=== PATIENT | male | born 1965 | race Caucasian/White ===

== ENCOUNTER 2023-11-22 15:54 | Emergency (ER) | payer BC, SELFPAY ==
[2023-11-22 15:54] VITALS: BMI 22.5
[2023-11-22 15:59] VITALS: BP 160/91
[2023-11-22 16:36] LABS: % Basophils 0.8 % (0-2); % Eosinophils 5.4 % (0-6); % Immature Granulocytes 2.8 % (0-0.5); % Lymphocytes 24.3 % (20.5-51.1); % Monocytes 11.4 % (1.7-9.3); % Neutrophils 55.3 % (42.2-75.2); Absolute Eosinophils 0.3 10^3/uL (0-0.7); Absolute Immature Granulocytes 0.1 10^3/uL (0-0.05); Absolute Lymphocytes 1.2 10^3/uL (1.2-3.4); Absolute Monocytes 0.6 10^3/uL (0.1-0.6); Absolute Neutrophils 2.8 10^3/uL (1.4-6.5); Hematocrit 34.9 % (39.0-52.0); Hemoglobin 12.1 g/dL (13.0-18.0); Mean Corp Hgb Conc. 34.7 g/dL (33.0-37.0); Mean Corpuscular Hgb 30.6 pg (27.0-31.0); Mean Corpuscular Volume 88.4 fL (80.0-94.0); Nucleated Red Blood Cells % 0 % (-); Platelet Count 342 10^3/uL (130-400); Red Blood Cell Count 3.95 10^6/uL (4.70-6.10); Red Cell Dist. Width 12.1 % (11.5-14.5)
[2023-11-22 16:43] LABS: ALT (SGPT) 46 U/L (0-50); AST (SGOT) 37 U/L (17-59); Albumin 3.9 g/dl (3.5-5.0); Alkaline Phosphatase 104 U/L (38-126); Blood Urea Nitrogen 14 mg/dl (9-20); Calcium 9.1 mg/dl (8.4-10.2); Carbon Dioxide 26 mmol/L (22-30); Chloride 107 mmol/L (98-107); Glucose 80 mg/dl (70-99); Sodium 138 mmol/L (135-145); Total Bilirubin 0.5 mg/dl (0.2-1.3); Total Protein 6.9 g/dl (6.3-8.2); eGFR > 60.00
--- NOTE | 2023-11-22 18:01 | ED.GENMED ---
History of Present Illness
General
Chief Complaint: Breathing Problem
Source: patient
Exam Limitations: none
Time Seen by Provider: 11/22/23 17:36
Nursing documentation reviewed up to this point in time: agreed with
Travel History
Have you had any contact with someone who has COVID-19?: No
Do you have any symptoms of coronavirus? Fever > 100 degrees, chills, cough, shortness of breath, sore throat, loss of taste or smell, muscle aches, or headache?: No
History of Present Illness
History of Present Illness:
Patient to ED with complaint of sudden onset SOB. States he was participating in mass this AM and felt chest tightness. States tightness resolves with rest. Returned again when he ambulated to car. States he noticed it when walking into ED.
Denies fever/chills, cp/pressure. States he feels winded. No leg pain or swelling. No cough. Symptms started this AM. S/P mitral valve replacement 11/02. Was seen this past week for right groin abscess, placed on Keflex. Reports this is
impmroving.
Past History
Past History
ED Past Medical History: Psychiatric (anxiety)
ED Past Surgical History: Cardiac (Mitral valve replacement)
Social History
Tobacco: Non-smoker
Alcohol: None
Drug: None
Review of Systems
Review of Systems
Allergies reviewed?: Yes
All Other Systems: ROS reviewed and negative except as documented in HPI and ROS
Constitutional: Reports no symptoms
EENT: Reports no symptoms
Respiratory: Reports other (SOB )
Cardiac: Reports no symptoms
ABD/GI: Reports no symptoms
: Reports no symptoms
Musculoskeletal: Reports no symptoms
Skin: Reports other (Right groin resoving abscess)
Neurological: Reports no symptoms
Psychiatric: Reports no symptoms
Phy Exam
General Physical Exam
General Presentation: well appearing and no apparent distress
General age: appears stated age
General Skin: warm and dry
General Habitus: normal
Cardiovascular Exam
Cardiovascular Exam: regular rate/rhythm and no edema
Pulmonary Exam
Pulmonary Exam: lungs clear, no respiratory distress, chest non tender, no crackles, no stridor, no wheezing and other (Pulse ox 99% RA, 99% with ambulation)
Gastrointestinal Exam
Gastrointestinal Exam: normal bowel sounds, non tender and soft
Musculoskeletal Exam
Musculoskeletal Exam: full ROM and neuro vasc intact
Skin Exam
Skin Exam: normal color, warm/dry, no rash and other (RIght groin with resolving abscess. Dressing intact with minimal serosanguinous drainage)
Psychiatric Exam
Psychiatric Exam: normal mood/affect
Scores
Heart Failure Risk
Heart Failure Risk Score: Not Applicable
Course
Orders/Labs/Results
Orders:
Orders
11/22/23 16:07
EKG [Electrocardiogram (*1)] Urgent
Reason for Study: Shortness of Breath
11/22/23 16:08
EKG- Treatment ONCE
11/22/23 16:15
CMP [Comprehensive Metabolic Panel] Urgent
Complete Blood Count/With Diff Urgent
11/22/23 18:31
CR Chest - 2 Views Urgent
Comment:
Reason For Exam: SOB
Abnormal Lab Results
11/22/23
16:15
RBC 3.95 L 10^6/uL
(4.70-6.10)
Hgb 12.1 L g/dL
(13.0-18.0)
Hct 34.9 L %
(39.0-52.0)
Abs Immat Gran (auto) 0.1 H 10^3/uL
(0-0.05)
Immature Gran % 2.8 H %
(0-0.5)
Monocytes % 11.4 H %
(1.7-9.3)
11/22/23 16:15
11/22/23 16:15
Vital Signs
Initial and Last Documented VS:
Initial Vital Signs
Temp Pulse Resp BP Pulse Ox
98.5 F 82 18 160/91 98
11/22/23 15:59 11/22/23 15:59 11/22/23 15:59 11/22/23 15:59 11/22/23 15:59
Last Documented Vital Signs
Temp Pulse Resp BP Pulse Ox
98.5 F 82 18 160/91 98
11/22/23 15:59 11/22/23 15:59 11/22/23 15:59 11/22/23 15:59 11/22/23 15:59
*Radiology
Radiology exam reviewed: radiology read reviewed
*Pulse Oximetry
Patient hypoxic: no
*Critical Care Note
Total Time (30-74mins, 75-104mins- exclusive of procedures): Not Applicable
Update Note
Update Note:
Patient seen in dept by CT surgery MANAN. MANAN spoke with Dr. Razo. No further testing needed tonight. Okay to discharge. He will follow up with patient in office on as scheduled.
ED Attending Note
-
Portions of this chart may have been created with voice recognition software.� Occasional wrong word or��sound alike� substitutions may have occurred due to the inherent limitations of voice recognition software.
Discharge Plan
Departure
Patient Disposition: Home (Routine Discharge)
Date of Disposition: 11/22/23
Time of Disposition: 19:43
Patient with high blood pressure during this ER visit?: No
Condition: Good
Covid-19: Not Applicable
Discharge Problem:
SOB (shortness of breath)
Instructions: Shortness of Breath (Dyspnea) (DC)
Prescriptions:
No Action
desvenlafaxine succinate [Pristiq] 50 mg Tablet Extended Release 24 Hr
50 mg PO DAILY
cyclobenzaprine 10 mg Tablet
5 mg PO HS PRN (Reason: muscle spasm) Qty: 20 0RF
acetaminophen 325 mg Tablet
650 mg PO Q4HPRN PRN (Reason: mild pain,headache,temp >101F ) Qty: 0 0RF
aspirin [Children's Aspirin] 81 mg Tablet,Chewable
81 mg PO DAILY Qty: 0 0RF
colchicine 0.6 mg Tablet
0.3 mg PO DAILY Qty: 30 0RF
oxycodone 5 mg Tablet
5 mg PO Q6HPRN PRN (Reason: severe pain) Qty: 20 0RF
Activity Restrictions/Additional Instructions:
Follow up with Dr. Razo on as scheduled. Return to the emergency department immediately for return of your symptoms or any further concerns.
Interventions
Interventions:
*Risk Screen - Suicide Last Done: 11/22/23 15:59
*General Assessment Last Done: 11/22/23 17:53
*Neglect/Abuse Screening Last Done: 11/22/23 15:59
ED- Fall Risk Assessment Last Done: 11/22/23 17:53
*ED COVID-19 Vaccine History Last Done: 11/22/23 15:59
*Nursing Disposition Last Done: 11/22/23 19:56
ED- Cardiac Assessment Last Done: 11/22/23 17:53
ED- Pulmonary Assessment Last Done: 11/22/23 17:53
ED-Skin Assessment Last Done: 11/22/23 17:53
Discharge Date and Time
Discharge Date/Time: 11/22/23 19:56
== END 2023-11-22 19:56 | disposition home or self-care (01) ==
LOC: EMR 15:54
PROVIDERS: Emergency Medicine; EMERGENCY PHYSICIAN Nurse Practitioner; FAMILY PHYSICIAN Family Medicine
DX: R06.02 Shortness of breath (principal)
CPT/HCPCS: 99285; 71046; 80053; 85025; 93005

== ENCOUNTER 2023-11-27 06:43 | Day surgery (SDC) | payer BC, SELFPAY ==
--- NOTE | 2023-11-26 15:06 | PTCARENOTE ---
was notified of abnormal ECG from 11/22/23; no actions requested.
[2023-11-27] VITALS (9 sets, daily range): BP systolic 109–137; BP diastolic 69–84; BMI 25.6
--- NOTE | 2023-11-27 06:40 | W.CVOR.SURPR ---
CVOR Surgeon Immed Pre Op
-
I have examined this patient prior to performance of the scheduled procedure.
The patient's condition is unchanged from the time of the dictated/written History and
Physical and the patient is able to undergo the scheduled procedure.
R groin incision and drainage
Preop diagnosis: right groin seroma vs infection
No changes to health or medications in the interim
[2023-11-27] MEDS: TYLENOL 1000 MG PO (07:13)
[2023-11-27] MEDS: NORMOSOL-R 1000 IV (07:39)
--- NOTE | 2023-11-27 08:53 | W.PN.CT.SURG ---
CT Surgery Operative Note
-
Operative Report
Pre-op Diagnosis: Right Groin Abscess From Prior Cut Down
Post-op Diagnosis: Same
Procedure: Incision and drainage of the right groin with specimen sent for culture
Date of Surgery: 11/27/23
Primary Surgeon: Fabien Razo MD, MS
Assisting Surgeons: Graciela Mims PA-C
Scrub and Circulating RN: Rocky Garcia RN, Diane Mcconnell RN
Sedations: General Endotracheal
Specimen: groin fluid, abscess/debris
Cultures: Blood cultures obtained prior to surgery, and groin fluid/abscess sent
Complications / Blood Loss: 10cc
Findings: The patient was prepped in the usual fashion limited to the right groin. A preoperative time out was performed with all members of the OR team. The side of surgery was verified as the right side. Ultrasound was used to evaluate the
groin before incision to ensure no pseudoaneurysm, there was a small fluid collection in the subcutaneous tissue with debris, flow was verified in the common femoral artery without pseudoaneurysm formation. The wound was opened at the prior incision
with a sharp #10 blade. There was serous fluid with some fibrinous exudate which was sampled. The subdermal layer of suture was cut and removed from the field. The deepest layer was intact overlying the femoral vessels with evidence of granulation
tissue. This was thoroughly irrigated with vancomycin infused saline. Any necrotic fat or debris was debrided from the wound. Hemostasis was obtained with electrocautery. The wound was packed with a single strip of betadine soaked cling dressing and
then a pressure dressing was placed over top. The patient was extubated and tolerated the procedure. He was sent to the recovery bay. He should continue antibiotics for 10 days, we will follow up on cultures and adjust as needed.
Fabien Razo MD, MS
Cardiac Surgeon
[facility]
11/27/23
9:06am
== END 2023-11-27 10:55 | disposition home or self-care (01) ==
LOC: SDS 06:43
PROVIDERS: ATTENDING PHYSICIAN Thoracic Surgery (Cardiothoracic Vascular Surgery); FAMILY PHYSICIAN Family Medicine
DX: L02.91 Cutaneous abscess, unspecified (principal)
CPT/HCPCS: 10060; 87015; 87040; 87070; 87075; 87102; 87176; 87205; 87206

== ENCOUNTER → 2025-06-21 07:16 | Outpatient (REF) | payer BC, SELFPAY | LOC: RCS 07:16 | PROVIDERS: ATTENDING PHYSICIAN Thoracic Surgery (Cardiothoracic Vascular Surgery); FAMILY PHYSICIAN Family Medicine | DX: Z98.890 Other specified postprocedural states (principal) | CPT/HCPCS: 93306 ==